=== PATIENT | male | born 1950 | race African-American/Black ===

== ENCOUNTER 2019-04-28 12:56 | Observation (INO) | payer SELFPAY ==
--- NOTE | 2019-04-28 14:07 | PDOC ---
History of Present Illness <Helga Mtz - Last Filed: 04/28/19 18:28> - General History Source: Patient Exam Limitations: No Limitations - History of Present Illness Initial Comments: 04/28/19 14:00 PCP: None HPI: 68yo M no significant PMH presenting with presyncope at 10AM this morning. Patient was singing at [employer] and suddenly felt lightheaded, reports feeling like swaying, denies room spinning. Sat down and symptoms improved. Blood pressure was taken right away, 185/113 in one arm, and 183/112 in the other arm. Has been eating and drinking well, denies feeling like he was going to pass out - did not lose consciousness, did not have tunnel vision. He denies any chest pain, nausea, vomiting, sweating, abdominal / back pain. No recent illnesses, fevers, chills, SOB. At the current time he feel improved with slight light headedness. He denies prior episodes, has never seen cardiology, does not have a primary care doctor, and reports that he had HTN a long time ago that was never treated. Denies any numbness, tingling, weakness, changes in vision, word finding difficulty. Friends at bedside report baseline mental status throughout the event. All: NKDA Meds: Per chart SHx: Denies toxic habits <Hussain Whipple - Last Filed: 04/28/19 19:18> - General Chief Complaint: Lightheaded Stated Complaint: DIZZINESS/BP PROBLEM Time Seen by Provider: 04/28/19 13:59 Past History <Helga Mtz - Last Filed: 04/28/19 18:28> - Past Medical History COPD: No Thyroid Disease: No Other medical history: none - Psycho Social/Smoking Cessation Hx Smoking History: Never smoked Hx Alcohol Use: No Drug/Substance Use Hx: No <Hussain Whipple - Last Filed: 04/28/19 19:18> - Past Medical History Allergies/Adverse Reactions: Allergies Allergy/AdvReac Type Severity Reaction Status Date / Time No Known Allergies Allergy Verified 04/28/19 13:21 Review of Systems - Review of Systems Able to Perform ROS?: Yes Is the patient limited Beninese proficient: Yes Constitutional: No: Chills, Diaphoresis, Fever, Weakness HEENTM: No: Nose Congestion, Throat Pain Respiratory: No: Cough, Shortness of Breath, Wheezing, Productive cough Cardiac (ROS): Yes: Lightheadedness. No: Chest Pain, Irregular Heart Rate, Palpitations, Syncope, Chest Tightness ABD/GI: No: Constipated, Diarrhea, Nausea, Poor Appetite, Poor Fluid Intake, Vomiting : No: Burning, Dysuria, Frequency Musculoskeletal: No: Muscle Pain, Muscle Weakness Integumentary: No: Pallor, Pruritus, Rash Neurological: No: Headache, Numbness, Tingling, Weakness Psychiatric: No: Stressors, Change in Appetite Endocrine: No: Increased Thirst, Increased Urine Hematologic/Lymphatic: No: Anemia, Blood Clots, Easy Bleeding All Other Systems: Reviewed and Negative <Hussain Whipple - Last Filed: 04/28/19 19:18> *Physical Exam - Vital Signs Last Vital Signs Temp Pulse Resp BP Pulse Ox 97.1 F L 95 H 16 193/103 H 100 04/28/19 13:20 04/28/19 13:20 04/28/19 13:20 04/28/19 17:41 04/28/19 13:20 <Helga Mtz - Last Filed: 04/28/19 18:28> - Vital Signs Last Vital Signs Temp Pulse Resp BP Pulse Ox 97.1 F L 95 H 16 189/111 H 100 04/28/19 13:20 04/28/19 13:20 04/28/19 13:20 04/28/19 13:20 04/28/19 13:20 - Physical Exam 04/28/19 14:28 Vitals reviewed, AFVSS GEN: Well appearing, appears stated age, NAD, comfortable. AAOx3. HEENT: NCAT, EOMI, PERRL. Sclera anicteric, noninjected. No facial asymmetry. Moist mucous membranes. Normal voice. Trachea midline. CV: RRR, S1/S2, no murmurs / rubs / gallops appreciated. LUNG: CTAB, normal work of breathing. No wheezes, rales, rhonchi. No cough. Speaking full sentences. GI: Soft, NTND, +BS, no guarding, no rebound. No masses. Neg CVAT b/l. EXTREMITIES: 2+ distal pulses. No LE edema. No obvious deformities of all extremities. SKIN: Warm, dry, no rashes appreciated, non-jaundiced. PSYCH: Normal mood and affect. Cooperative and appropriate. NEURO: CN grossly intact. Moving all extremities well. Normal strength and sensation grossly. <Hussain Whipple - Last Filed: 04/28/19 19:18> ED Treatment Course - LABORATORY CBC & Chemistry Diagram: 04/28/19 14:37 04/28/19 16:30 - ADDITIONAL ORDERS Additional order review: Laboratory Results 04/28/19 04/28/19 15:30 14:37 Sodium Cancelled Potassium Cancelled Chloride Cancelled Carbon Dioxide Cancelled Anion Gap Cancelled BUN Cancelled Creatinine Cancelled Est GFR (CKD-EPI)AfAm Cancelled Est GFR (CKD-EPI)NonAf Cancelled Random Glucose Cancelled Calcium Cancelled Total Bilirubin Cancelled AST Cancelled ALT Cancelled Alkaline Phosphatase Cancelled Creatine Kinase Cancelled Troponin I Cancelled Total Protein Cancelled Albumin Cancelled Urine Color Yellow Urine Appearance Clear Urine pH 8.5 H Ur Specific [place] 1.014 Urine Protein Negative Urine Glucose (UA) Negative Urine Ketones Negative Urine Blood 1+ H Urine Nitrite Negative Urine Bilirubin Negative Urine Urobilinogen 0.2 Ur Leukocyte Esterase Negative Urine WBC (Auto) 0 Urine RBC (Auto) 21 Urine Casts (Auto) 0 U Epithel Cells (Auto) 0.1 Urine Bacteria (Auto) 0.3 04/28/19 14:37 RBC 4.72 MCV 92.3 MCHC 33.6 RDW 14.0 MPV 9.0 Neutrophils % 70.1 Lymphocytes % 20.8 Monocytes % 8.3 Eosinophils % 0.3 Basophils % 0.5 - Medications Given in the ED: ED Medications Discontinued Medications Generic Name Dose Route Start Last Admin Trade Name Freq PRN Reason Stop Dose Admin Hydrochlorothiazide 12.5 mg 04/28/19 15:52 04/28/19 16:36 Hctz - PO 04/28/19 15:53 12.5 mg ONCE ONE Administration Sodium Chloride 1,000 ml 04/28/19 14:19 04/28/19 14:40 Normal Saline - IV 04/28/19 14:20 1,000 ml ONCE ONE Administration <Helga Mtz - Last Filed: 04/28/19 18:28> - LABORATORY CBC & Chemistry Diagram: 04/28/19 14:37 04/28/19 16:30 <Hussain Whipple - Last Filed: 04/28/19 19:18> Medical Decision Making - Medical Decision Making 04/28/19 14:24 68yo M no significant PMH presenting with presyncope at 10AM this morning. History notable for lightheadedness, no PCP/Cards. Exam notable for hypertension , otherwise unremarkable. DDX: Hypertension vs Hypertensive Emergency ( lightheadedness / brief headache) less likely vasovagal, orthostatic hypotension , unlikely ACS. - CBC, CMP, Cardiac Profile - EKG EKG: rate 70, NSR, normal axis, normal intervals, borderline ST elevations V3, V4, acute T waves, voltage criteria met for LVH 04/28/19 15:57 - CBC unremarkable - UA ordered - NCHCT ordered given symptomatic HTN (consistently 180s-190s sbp in the department) - Hydrochlorothiazide 12.5 mg initiated for HTN - Will admit for BP medication management, needs PCP / Cardiac evaluation 04/28/19 16:47 - Patient back from CT - Repeat CP/CMP, hemolyzed - UA without proteinuria 04/28/19 17:16 - CT with no acute pathology 04/28/19 18:47 - K 5.7 on repeat CMP - 10U Insulin, 1 amp D50, 5 Lokelma ordered - Inpatient team aware <Hussain Whipple - Last Filed: 04/28/19 19:18> Discharge - Discharge Information Problems reviewed: Yes - Admission Yes <Helga Mtz - Last Filed: 04/28/19 18:28> - Discharge Information Problems reviewed: Yes <Hussain Whipple - Last Filed: 04/28/19 19:18> - Discharge Information Clinical Impression/Diagnosis: Lightheadedness, Hypertensive urgency, Hyperkalemia Hypertension Qualifiers: Hypertension type: unspecified Qualified Code(s): I10 - Essential (primary) hypertension Condition: Guarded
--- NOTE | 2019-04-28 14:18 | PDOC ---
*Physical Exam - Vital Signs Last Vital Signs Temp Pulse Resp BP Pulse Ox 97.1 F L 95 H 16 189/111 H 100 04/28/19 13:20 04/28/19 13:20 04/28/19 13:20 04/28/19 13:20 04/28/19 13:20 ED Treatment Course - LABORATORY CBC & Chemistry Diagram: 04/28/19 14:37 04/29/19 06:10 Medical Decision Making - Medical Decision Making 04/28/19 14:17 Patient seen as pre-attending with Dr. Whipple (PGY-1) and under Dr. Mtz ( Attending) 68 y/o male with no reported PMHx present with lightheadedness/? vertigo earlier today Patient was in [employer] when he suddenly felt like he was swaying. 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 No chest pain, shortness of breath, lightheadedness, palpitations, nausea, diaphoresis. Hypertensive 189/111 @ presentation, well appearing Not followed by primary care, no diagnosed h/o HTN, takes multivitamin daily, no other medications BP symmetrical B/L, no c/o CP - low clinical suspicion for aortic dissection Initially patient was c/o headache but has since resolved. EKG, Troponin, CXR. 04/28/19 15:21 EKG with possible peaked T waves -? hyperkalemia, CMP pending 04/28/19 15:25 K+ 5.7 - will treat with hyperkalemia cocktail As per attending, HCTZ and Labetalol and admission for symptomatic HTN Discharge - Discharge Information Problems reviewed: Yes Clinical Impression/Diagnosis: Lightheadedness, Hypertensive urgency, Hyperkalemia Hypertension Qualifiers: Hypertension type: unspecified Qualified Code(s): I10 - Essential (primary) hypertension Condition: Guarded - Follow up/Referral - Patient Discharge Instructions - Post Discharge Activity
[2019-04-28] MEDS ORDERED: SODIUM CHLORIDE 0.9% 500 ML INFUS.BAG IV ONE (14:19)
[2019-04-28 14:47] LABS: BASO % 0.5 % (0-2.0); EOS % 0.3 % (0-4.5); HEMATOCRIT 43.6 % (35.4-49); HEMOGLOBIN 14.6 GM/dL (11.7-16.9); LYMPH % 20.8 % (8-40); MCHC 33.6 g/dl (32.0-35.9); MEAN CELL VOLUME 92.3 fl (80-96); MONO % 8.3 % (3.8-10.2); NEUT % 70.1 % (42.8-82.8); PLATELET COUNT 177 K/MM3 (134-434); RBC 4.72 M/mm3 (4.00-5.60); WHITE BLOOD COUNT 4.7 K/mm3 (4.0-10.0)
--- NOTE | 2019-04-28 15:20 | PDOC ---
Attending Attestation - Resident Resident Name: SarabjitHussain - ED Attending Attestation I have performed the following: I have examined & evaluated the patient, The case was reviewed & discussed with the resident, I agree w/resident's findings & plan - HPI HPI: 04/28/19 18:29 68yo M no significant PMH presenting with dizziness at 10AM this morning. Patient was singing at [employer] and suddenly felt lightheaded, reports feeling like swaying, denies room spinning. Sat down and symptoms improved. Blood pressure was taken right away, 185/113 in one arm, and 183/112 in the other arm. Has been eating and drinking well, denies feeling like he was going to pass out - did not lose consciousness, did not have tunnel vision. He denies any chest pain, nausea, vomiting, sweating, abdominal / back pain. No recent illnesses, fevers, chills, SOB. At the current time he feel improved with slight light headedness. He denies prior episodes, has never seen cardiology, does not have a primary care doctor, and reports that he had HTN a long time ago that was never treated. Denies any numbness, tingling, weakness, changes in vision, word finding difficulty. Friends at bedside report baseline mental status throughout the event. - Physicial Exam PE: 04/28/19 15:18 Agree with the resident's HPI and PE as documented in the electronic medical record. NAD, well appearing, EOMI, PERRL, nl conjunctiva, anicteric; neck supple. lungs clear, RRR, no murmur. abdomen soft nontender. no rebound, guarding. Back nontender. DASILVA x4, no focal neuro deficits. No peripheral edema. normal color for ethnicity, WWP. speech clear. no aphasia. no dysarthria. no cerebellar signs. gait stable, no ataxia. no nystagmus. 04/28/19 18:30 04/28/19 18:30 - Medical Decision Making 04/28/19 15:18 Vital Signs Temp Pulse Resp BP Pulse Ox 97.1 F L 95 H 16 189/111 H 100 04/28/19 13:20 04/28/19 13:20 04/28/19 13:20 04/28/19 13:20 04/28/19 13:20 Hypertension noted, 189/111, otherwise normal heart rate and respirations, no respiratory distress, afebrile nontoxic appearing. EKG with sinus rhythm, no T wave derangements, no ST elevations or depression, mild LVH is noted with T wave peaking, We will check electrolytes labs, troponin reassess. 04/28/19 15:53 HTN noted 193/111 - will start hctz 12.5mg orally for sx HTN no IVF, pt clinically appears euvolemic ordered already by resident team. slow titration of BP by 25% in map over the next 25%, no aggressive indication for treatment without end organ damage or bleed 04/28/19 18:26 CTH neg for bleed/CVA initial labs /cmp hemolyzed, second one sent, however hemolyzed. but results were briefly resulted. d/w Rajwinder in lab/chem, initial sample "grossly hemolyzed" with K 5.7. will send repeat one, could be true hyperkalemia and necessitates treatment given EKG peaked t waves. labs and lytes with preserved Cr, cardiac profile is normal given hctz to start as first line agent and continued monitoring, given HTN and race. additional labetalol given htn urgency. 04/28/19 18:30 discussed with lab, multiple "hemolyzed" potassium samples. K 5.7, given EKG abnormalities, peaked T waves will treat calcium, lasix, insulin, dextrose, albuterol 10mg. will recheck after. admitting team to be made aware. admission observation for symptomatic HTN/ HTN urgency with dizziness 04/29/19 20:21 Heart Score/ECG Review #1 ECG reviewed & interpreted by me at: 13:15 General ECG Interpretation: Sinus Rhythm, Normal Rate, Normal Intervals 04/28/19 15:19 EKG normal sinus rhythm 92 bpm, no interval abnormalities, narrow QRS, ST and T wave segments and morphology normal, mild LVH is noted with peaking of the T waves we will check electrolytes and troponin.
[2019-04-28] MEDS ORDERED: HYDROCHLOROTHIAZIDE 25 MG TABLET (FP) PO ONE (15:52)
[2019-04-28 15:54] LABS: EPI CELLS 0.1 /HPF (0-5/HPF); HYALINE CASTS 0 /lpf (0-8); PH,URINE 8.5 (5.0-8.0); URINE APPEARANCE CLEAR; URINE BACTERIA 0.3 /hpf (NEGATIVE); URINE BILIRUBIN NEGATIVE (NEGATIVE); URINE COLOR YELLOW; URINE GLUCOSE (UA) NEGATIVE (NEGATIVE); URINE KETONE NEGATIVE (NEGATIVE); URINE LEUK ESTERASE NEGATIVE (NEGATIVE); URINE NITRITE NEGATIVE (NEGATIVE); URINE PROTEIN NEGATIVE (NEGATIVE); URINE RBC 21 /hpf (0-4); URINE UROBILINOGEN 0.2 mg/dL (0.2-1.0); URINE WBC 0 /hpf (0-5)
[2019-04-28] MEDS ORDERED: HYDROCHLOROTHIAZIDE 25 MG TABLET (FP) ONE (16:34)
--- NOTE | 2019-04-28 17:14 | HP ---
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 Pt reports he woke up this morning and felt lightheaded without any dizziness. There was healthcare personnel who took his BP and noted it was 180's systolic over 100's. Pt was told to go to the ER for further evaluation. Pt currently has resolution of symptoms and remains with elevated BP. Pt also reports that he has not been to a physician for over 5 years and does not have a primary care doctor anymore. Pt does not take any medications, vitamins, supplements. He does not use any recreational drugs. ER course was notable for: (1) Head CT - Negative for acute path (2) HCTZ 12.5mg PO PAST MEDICAL HISTORY: None PAST SURGICAL HISTORY: None Social History: Smoking: None Alcohol: None Drugs: None Frequent churchgoer, independent in ADLs Allergies No Known Allergies Allergy (Verified 04/28/19 13:21) HOME MEDICATIONS: None REVIEW OF SYSTEMS As per HPI PHYSICAL EXAMINATION Vital Signs - 24 hr 04/28/19 04/28/19 13:20 16:37 Temperature 97.1 F L Pulse Rate 95 H Respiratory 16 Rate Blood Pressure 189/111 H Blood Pressure 208/113 H [Left Arm] O2 Sat by Pulse 100 Oximetry (%) GENERAL: Awake, alert, and fully oriented, in no acute distress. HEENT: NC/AT, EOMI, KERRY, sclera anicteric, MMM NECK: No JVD, no bruits LUNGS: CTA bilaterally. No wheezes, and no crackles. No accessory muscle use. HEART: RRR, normal S1 and S2 without murmur ABDOMEN: Soft, nontender, not distended, normoactive bowel sounds, no guarding, MUSCULOSKELETAL: No CVA tenderness. EXTREMITIES: 2+ DP pulses, warm, well-perfused. No calf tenderness. No peripheral edema. NEUROLOGICAL: report specialist II-XII intact. STrength 5/5 throughout all four limbs. Sensation intact throughout including facial regions. Normal speech. Normal gait. PSYCHIATRIC: Cooperative. Good eye contact. Appropriate mood and affect. SKIN: Warm, dry, no rashes or lesions noted Laboratory Results - last 24 hr 04/28/19 04/28/19 04/28/19 14:37 14:37 15:30 WBC 4.7 RBC 4.72 Hgb 14.6 Hct 43.6 MCV 92.3 MCH 31.0 MCHC 33.6 RDW 14.0 Plt Count 177 MPV 9.0 Absolute Neuts (auto) 3.3 Neutrophils % 70.1 Lymphocytes % 20.8 Monocytes % 8.3 Eosinophils % 0.3 Basophils % 0.5 Nucleated RBC % 0 Sodium Cancelled Potassium Cancelled Chloride Cancelled Carbon Dioxide Cancelled Anion Gap Cancelled BUN Cancelled Creatinine Cancelled Est GFR (CKD-EPI)AfAm Cancelled Est GFR (CKD-EPI)NonAf Cancelled Random Glucose Cancelled Calcium Cancelled Total Bilirubin Cancelled AST Cancelled ALT Cancelled Alkaline Phosphatase Cancelled Creatine Kinase Cancelled Troponin I Cancelled Total Protein Cancelled Albumin Cancelled Urine Color Yellow Urine Appearance Clear Urine pH 8.5 H Ur Specific [place] 1.014 Urine Protein Negative Urine Glucose (UA) Negative Urine Ketones Negative Urine Blood 1+ H Urine Nitrite Negative Urine Bilirubin Negative Urine Urobilinogen 0.2 Ur Leukocyte Esterase Negative Urine WBC (Auto) 0 Urine RBC (Auto) 21 Urine Casts (Auto) 0 U Epithel Cells (Auto) 0.1 Urine Bacteria (Auto) 0.3 ASSESSMENT/PLAN: Hypertensive Emergency Hyperkalemia --IV Labetalol 10mg ordered for acute lowering --Goal lowering ~15% in next 6-8hrs to 160's/90 --Can initiate long-term Norvasc therapy in the interim as well --Due to hyperkalemia and T-wave changes noted --CaGluc 1amp --Insulin 10U + D50 amp --Lokelma --Aldosterone draw in the AM FEN: Fluids: not indicated Electrolyte abnormalities: Hyperkalemia Nutrition: Low salt PPX: DVT - Early ambulation GI - Not indicated Dispo: Tele observation Case discussed with Dr. Bridger Guzman, DO - IM PGY-3 Visit type - Emergency Visit Emergency Visit: Yes ED Registration Date: 04/28/19 Care time: The patient presented to the Emergency Department on the above date and was hospitalized for further evaluation of their emergent condition. - New Patient This patient is new to me today: Yes Date on this admission: 04/28/19 - Critical Care Critical Care patient: No ATTENDING PHYSICIAN STATEMENT I saw and evaluated the patient. I reviewed the resident's note and discussed the case with the resident. I agree with the resident's findings and plan as documented. SUBJECTIVE: OBJECTIVE: ASSESSMENT AND PLAN:
[2019-04-28 17:42] LABS: ALBUMIN 4.1 g/dl (3.4-5.0); ALK PHOS 56 U/L (45-117); BILIRUBIN,TOTAL 0.9 mg/dL (0.2-1); BLOOD UREA NITROGEN 12.7 mg/dL (7-18); CHLORIDE 106 mmol/L (98-107); CO2 29 mmol/L (21-32); CREATININE 0.9 mg/dL (0.55-1.3); GLUCOSE,RANDOM 80 mg/dL (74-106); SGPT/ALT 26 U/L (13-61); SODIUM 138 mmol/L (136-145); TOT PROT 7.9 g/dl (6.4-8.2)
[2019-04-28] MEDS ORDERED: LABETALOL HCL 5 MG/1 ML (100MG/20 ML VIAL) IVPUSH ONE (17:48)
[2019-04-28] MEDS ORDERED: LABETALOL HCL 5 MG/1 ML (200MG/40ML VIAL) IVPB ONE (18:07)
[2019-04-28] MEDS ORDERED: INSULIN REGULAR HUMAN 100 UNITS/ML *VIAL IVPUSH ONE (18:39)
[2019-04-28] MEDS ORDERED: DEXTROSE 50%-WATER - 25 GM/50 ML VIAL IVPUSH ONE (18:39)
[2019-04-28 18:42] LABS: POTASSIUM 5.7 mmol/L (3.5-5.1); SGOT/AST 42 U/L (15-37)
[2019-04-28] MEDS ORDERED: CALCIUM GLUCONATE 10% - 1,000 MG/10 ML VIAL IVPUSH ONE (18:47)
[2019-04-28] MEDS ORDERED: FUROSEMIDE 40 MG/4 ML INJECTABLE VIAL IVPUSH ONE (18:50)
--- NOTE | 2019-04-28 19:08 | PN ---
Teaching Attending Note Name of Resident: Montrell Guzman ATTENDING PHYSICIAN STATEMENT I saw and evaluated the patient. I reviewed the resident's note and discussed the case with the resident. I agree with the resident's findings and plan as documented. SUBJECTIVE: Lightheadedness resolved. No visual disturbance/headache/limb numbness or weakness. No fever/chills. OBJECTIVE: Afebrile, Hypertensive Last Vital Signs Temp Pulse Resp BP Pulse Ox 97.1 F L 74 19 155/93 98 04/28/19 13:20 04/28/19 18:49 04/28/19 18:49 04/28/19 18:49 04/28/19 18:49 HEENT - Atraumatic, Normocephalic. Heart - S1, S2, RRR Lungs - Clear to auscultation Abdomen - Soft, non-tender. Bowel Sounds normal. Extremities - No edema, no calf tenderness. Neuro - AAO x 3. DHIRAJ. Tone/Power normal all extremities. Laboratory Results - last 24 hr 04/28/19 04/28/19 04/28/19 14:37 14:37 15:30 WBC 4.7 RBC 4.72 Hgb 14.6 Hct 43.6 MCV 92.3 MCH 31.0 MCHC 33.6 RDW 14.0 Plt Count 177 MPV 9.0 Absolute Neuts (auto) 3.3 Neutrophils % 70.1 Lymphocytes % 20.8 Monocytes % 8.3 Eosinophils % 0.3 Basophils % 0.5 Nucleated RBC % 0 Sodium Cancelled Potassium Cancelled Chloride Cancelled Carbon Dioxide Cancelled Anion Gap Cancelled BUN Cancelled Creatinine Cancelled Est GFR (CKD-EPI)AfAm Cancelled Est GFR (CKD-EPI)NonAf Cancelled Random Glucose Cancelled Calcium Cancelled Total Bilirubin Cancelled AST Cancelled ALT Cancelled Alkaline Phosphatase Cancelled Creatine Kinase Cancelled Creatine Kinase Index CK-MB (CK-2) Troponin I Cancelled Total Protein Cancelled Albumin Cancelled Urine Color Yellow Urine Appearance Clear Urine pH 8.5 H Ur Specific [place] 1.014 Urine Protein Negative Urine Glucose (UA) Negative Urine Ketones Negative Urine Blood 1+ H Urine Nitrite Negative Urine Bilirubin Negative Urine Urobilinogen 0.2 Ur Leukocyte Esterase Negative Urine WBC (Auto) 0 Urine RBC (Auto) 21 Urine Casts (Auto) 0 U Epithel Cells (Auto) 0.1 Urine Bacteria (Auto) 0.3 04/28/19 04/28/19 16:30 18:15 WBC RBC Hgb Hct MCV MCH MCHC RDW Plt Count MPV Absolute Neuts (auto) Neutrophils % Lymphocytes % Monocytes % Eosinophils % Basophils % Nucleated RBC % Sodium 138 Cancelled Potassium 5.7 H Cancelled Chloride 106 Cancelled Carbon Dioxide 29 Cancelled Anion Gap No Result Required. Cancelled BUN 12.7 Cancelled Creatinine 0.9 Cancelled Est GFR (CKD-EPI)AfAm 100.65 Cancelled Est GFR (CKD-EPI)NonAf 86.84 Cancelled Random Glucose 80 Cancelled Calcium 9.0 Cancelled Total Bilirubin 0.9 Cancelled AST 42 H Cancelled ALT 26 Cancelled Alkaline Phosphatase 56 Cancelled Creatine Kinase 215 Creatine Kinase Index 0.9 CK-MB (CK-2) 2.0 Troponin I < 0.02 Total Protein 7.9 Cancelled Albumin 4.1 Cancelled Urine Color Urine Appearance Urine pH Ur Specific [place] Urine Protein Urine Glucose (UA) Urine Ketones Urine Blood Urine Nitrite Urine Bilirubin Urine Urobilinogen Ur Leukocyte Esterase Urine WBC (Auto) Urine RBC (Auto) Urine Casts (Auto) U Epithel Cells (Auto) Urine Bacteria (Auto) Current Medications Generic Name Dose Route Start Last Admin Trade Name Freq PRN Reason Stop Dose Admin Amlodipine Besylate 10 mg 04/28/19 19:15 Norvasc - PO DAILY BUSTER Sodium Zirconium Cyclosilicate 5 gm 04/28/19 18:45 Lokelma PO DAILY BUSTER ASSESSMENT AND PLAN: 68 year old male with no significant PMH (not seen a physician in 5 years) presents with lightheadedness, and near syncope at temple, found to have hypertensive urgency. 1. Hypertensive Urgency - Uncontrolled HTN with lightheadedness CT Head - no acute pathology IV labetalol in acute setting. Will start Norvasc 10mg. Telemonitoring overnight. 2. Hyperkalemia with T wave tenting Telemonitoring Calcium gluconate, Insulin/Dextrose ordered. Lokelma Repeat K ?underlying secondary cause of hypertension. For out-patient work-up once BP controlled. DVT Px - Heparin SQ.
[2019-04-28] MEDS ORDERED: FUROSEMIDE 40 MG/4 ML INJECTABLE VIAL ONE (19:51)
[2019-04-28] MEDS ORDERED: amLODIPine BESYLATE 5 MG TABLET (FP) ONE (19:52)
[2019-04-28] MEDS ORDERED: CALCIUM GLUCONATE 10% - 1,000 MG/10 ML VIAL ONE (19:53)
[2019-04-28] MEDS ORDERED: DEXTROSE 50%-WATER 25 GM/50 ML DISP.SYRIN ONE (19:53)
[2019-04-28] MEDS: amLODIPine BESYLATE 10 MG TABLET (FP) PO SCH (20:26)
[2019-04-28] MEDS: SODIUM ZIRCONIUM CYCLOSILICATE (LOKELMA) 5 GM PACKET PO SCH (20:26)
[2019-04-28 21:18] VITALS: BMI 25.2
[2019-04-29] MEDS: HEPARIN NA (PORCINE) 5,000 UNITS/ML 1ML VIAL SQ SCH ×2 (06:22→14:03)
[2019-04-29 07:53] LABS: BLOOD UREA NITROGEN 19.6 mg/dL (7-18); CALCIUM 9.7 mg/dL (8.5-10.1); CREATININE 0.9 mg/dL (0.55-1.3)
[2019-04-29 08:50] LABS: URINE APPEARANCE CLEAR; URINE BILIRUBIN NEGATIVE (NEGATIVE); URINE COLOR YELLOW; URINE GLUCOSE (UA) NEGATIVE (NEGATIVE); URINE KETONE NEGATIVE (NEGATIVE); URINE LEUK ESTERASE NEGATIVE (NEGATIVE); URINE NITRITE NEGATIVE (NEGATIVE); URINE PROTEIN NEGATIVE (NEGATIVE); URINE UROBILINOGEN 0.2 mg/dL (0.2-1.0)
[2019-04-29] MEDS ORDERED: PT OWN MED DRAWER 7, Y5N ONE (11:30)
[2019-04-29] MEDS: amLODIPine BESYLATE 10 MG TABLET (FP) PO SCH (11:36)
[2019-04-29] MEDS: SODIUM ZIRCONIUM CYCLOSILICATE (LOKELMA) 5 GM PACKET PO SCH (12:49)
--- NOTE | 2019-04-29 13:53 | DS ---
Physical Exam: SUBJECTIVE: Lightheadedness resolved. No visual disturbance/headache/limb numbness or weakness. No fever/chills. OBJECTIVE: Afebrile, Hypertension resolved. Last Vital Signs Temp Pulse Resp BP Pulse Ox 97.6 F 76 18 142/87 98 04/29/19 09:00 04/29/19 09:00 04/29/19 09:00 04/29/19 09:00 04/29/19 09:00 HEENT - Atraumatic, Normocephalic. Heart - S1, S2, RRR Lungs - Clear to auscultation Abdomen - Soft, non-tender. Bowel Sounds normal. Extremities - No edema, no calf tenderness. Neuro - AAO x 3. DHIRAJ. Tone/Power normal all extremities. Laboratory Results - last 24 hr 04/28/19 04/28/19 04/28/19 14:37 14:37 15:30 WBC 4.7 RBC 4.72 Hgb 14.6 Hct 43.6 MCV 92.3 MCH 31.0 MCHC 33.6 RDW 14.0 Plt Count 177 MPV 9.0 Absolute Neuts (auto) 3.3 Neutrophils % 70.1 Lymphocytes % 20.8 Monocytes % 8.3 Eosinophils % 0.3 Basophils % 0.5 Nucleated RBC % 0 Sodium Cancelled Potassium Cancelled Chloride Cancelled Carbon Dioxide Cancelled Anion Gap Cancelled BUN Cancelled Creatinine Cancelled Est GFR (CKD-EPI)AfAm Cancelled Est GFR (CKD-EPI)NonAf Cancelled Random Glucose Cancelled Calcium Cancelled Total Bilirubin Cancelled AST Cancelled ALT Cancelled Alkaline Phosphatase Cancelled Creatine Kinase Cancelled Creatine Kinase Index CK-MB (CK-2) Troponin I Cancelled Total Protein Cancelled Albumin Cancelled Urine Color Yellow Urine Appearance Clear Urine pH 8.5 H Ur Specific Cly[place] 1.014 Urine Protein Negative Urine Glucose (UA) Negative Urine Ketones Negative Urine Blood 1+ H Urine Nitrite Negative Urine Bilirubin Negative Urine Urobilinogen 0.2 Ur Leukocyte Esterase Negative Urine WBC (Auto) 0 Urine RBC (Auto) 21 Urine Casts (Auto) 0 U Epithel Cells (Auto) 0.1 Urine Bacteria (Auto) 0.3 04/28/19 04/28/19 04/29/19 16:30 18:15 06:10 WBC RBC Hgb Hct MCV MCH MCHC RDW Plt Count MPV Absolute Neuts (auto) Neutrophils % Lymphocytes % Monocytes % Eosinophils % Basophils % Nucleated RBC % Sodium 138 Cancelled 136 Potassium 5.7 H Cancelled 4.0 Chloride 106 Cancelled 99 Carbon Dioxide 29 Cancelled 30 Anion Gap No Result Required. Cancelled 8 BUN 12.7 Cancelled 19.6 H Creatinine 0.9 Cancelled 0.9 Est GFR (CKD-EPI)AfAm 100.65 Cancelled 100.65 Est GFR (CKD-EPI)NonAf 86.84 Cancelled 86.84 Random Glucose 80 Cancelled 95 Calcium 9.0 Cancelled 9.7 Total Bilirubin 0.9 Cancelled AST 42 H Cancelled ALT 26 Cancelled Alkaline Phosphatase 56 Cancelled Creatine Kinase 215 Creatine Kinase Index 0.9 CK-MB (CK-2) 2.0 Troponin I < 0.02 Total Protein 7.9 Cancelled Albumin 4.1 Cancelled Urine Color Urine Appearance Urine pH Ur Specific [place] Urine Protein Urine Glucose (UA) Urine Ketones Urine Blood Urine Nitrite Urine Bilirubin Urine Urobilinogen Ur Leukocyte Esterase Urine WBC (Auto) Urine RBC (Auto) Urine Casts (Auto) U Epithel Cells (Auto) Urine Bacteria (Auto) 04/29/19 08:30 WBC RBC Hgb Hct MCV MCH MCHC RDW Plt Count MPV Absolute Neuts (auto) Neutrophils % Lymphocytes % Monocytes % Eosinophils % Basophils % Nucleated RBC % Sodium Potassium Chloride Carbon Dioxide Anion Gap BUN Creatinine Est GFR (CKD-EPI)AfAm Est GFR (CKD-EPI)NonAf Random Glucose Calcium Total Bilirubin AST ALT Alkaline Phosphatase Creatine Kinase Creatine Kinase Index CK-MB (CK-2) Troponin I Total Protein Albumin Urine Color Yellow Urine Appearance Clear Urine pH 5.0 D Ur Specific [place] 1.020 Urine Protein Negative Urine Glucose (UA) Negative Urine Ketones Negative Urine Blood Negative Urine Nitrite Negative Urine Bilirubin Negative Urine Urobilinogen 0.2 Ur Leukocyte Esterase Negative Urine WBC (Auto) Urine RBC (Auto) Urine Casts (Auto) U Epithel Cells (Auto) Urine Bacteria (Auto) Discharge Medications Medication Instructions Recorded Amlodipine Besylate [Norvasc -] 10 mg PO DAILY #30 tablet 04/29/19 Date of Admission:04/28/19 Date of Discharge: 04/29/19 Minutes to complete discharge: 45 Discharge Summary Problems reviewed: Yes Reason For Visit: LIGHTHEADEDNESS HYPERTENSION Current Active Problems Hyperkalemia (Acute) Hypertension (Acute) Hypertensive urgency (Acute) Lightheadedness (Acute) Hospital Course: 68 year old male with no significant PMH (not seen a physician in 5 years) presents with lightheadedness, and near syncope at [facility], found to have hypertensive urgency. His blood pressure on presentation was 208/113, improved after IV labetolol and oral Norvasc. His blood pressure remains controlled today on Norvasc with no further neurological symptoms. Lightheadedness resolved. He was also found to have elevated potassium, which improved s/p Lokelma. He was advised to see his PCP for repeat K check next week and for further work-up for secondary causes of hypertension if potassium is again elevated. He was strongly advised to establish contact with a PCP in order for regular BP monitoring and health maintenance. He was given a referral for [facility]. He is currently normotensive with no further neurological symptoms .He is medically optimized for discharge on Norvasc 10mg daily. Condition: Good - Instructions Diet, Activity, Other Instructions: You were admitted with lightheadedness and found to have elevated blood pressure. You were started on a Blood Pressure medication Norvasc. Please take and follow with a Primary Care Provider. [facility] and further modification of blood pressure medications. You were also found to have elevated potassium levels, which improved after you were given potassium-lowering medications. Please see your primary care provider next week for a repeat potassium check. Referrals: Montrell Guzman RES [Resident] - 1 Week Disposition: HOME - Home Medications Comprehensive Discharge Medication List: Ambulatory Orders Amlodipine Besylate [Norvasc -] 10 mg PO DAILY #30 tablet 04/29/19 This patient is new to me today: No Emergency Visit: Yes ED Registration Date: 04/28/19 Care time: The patient presented to the Emergency Department on the above date and was hospitalized for further evaluation of their emergent condition. Critical Care patient: No - Discharge Referral Referred to [facility] Med P.C.: No
[2019-04-29 15:43] VITALS: BP 117/78; PULSE 98; TEMP 98
--- NOTE | 2019-04-30 10:23 | EKG ---
Test Reason : Blood Pressure : / mmHG Vent. Rate : 092 BPM Atrial Rate : 092 BPM P-R Int : 160 ms QRS Dur : 090 ms QT Int : 362 ms P-R-T Axes : 077 006 037 degrees QTc Int : 447 ms NORMAL SINUS RHYTHM POSSIBLE LEFT ATRIAL ENLARGEMENT SEPTAL INFARCT , AGE UNDETERMINED ABNORMAL ECG NO PREVIOUS ECGS AVAILABLE Confirmed by Essence Polanco ([id number]) on 04/30/2019 10:23:27 AM Referred By: Confirmed By:Essence Polanco
== END 2019-04-29 15:47 | disposition home or self-care (01) ==
LOC: JER 12:56 → JERBED 15:59 → J4W 21:19
PROC: 3E033VG Introduction of Insulin into Peripheral Vein, Percutaneous Approach (ICD-10-PCS; principal; 2019-04-28)
PROC: 3E0337Z Introduction of Electrolytic and Water Balance Substance into Peripheral Vein, Percutaneous Approach (ICD-10-PCS; 2019-04-28)
PROC: 3E033GC Introduction of Other Therapeutic Substance into Peripheral Vein, Percutaneous Approach (ICD-10-PCS; 2019-04-28)
DX: I16.0 Hypertensive urgency (principal); E87.5 Hyperkalemia; I10 Essential (primary) hypertension; R42 Dizziness and giddiness
CPT/HCPCS: 36415; 70450-TC; 80048; 80053; 81003; 82088; 82550; 82553; 84484; 85025; 93005; 93010; 99285-25; G0378; J1644